=== PATIENT | male | born 1965 | race Caucasian/White ===

== ENCOUNTER 2018-10-23 12:47 | Outpatient (CLI) | payer BC ==
--- NOTE | 2018-10-23 14:38 | CT ---
NONCONTRAST CT ABDOMEN AND PELVIS: Date: 10/23/18 HISTORY: Right flank pain for the past 3 weeks. History of renal stones. COMPARISON: 11/23/13. FINDINGS: The previously noted large calculus in the right renal pelvis is no longer seen and likely related to interval treatment. There is an approximately 3-4 mm nonobstructing calculus in the inferior pole of right kidney. No additional renal or ureteral calculi are seen bilaterally, and there is no hydronep hrosis. A noncalcified pleural based 5.0 mm pulmonary nodule is seen in the region of the lingula. Lung bases are otherwise clear. The right lung base, liver, spleen, pancreas, and bilateral adrenal glands demonstrate a grossly norm al unenhanced CT appearance. There is a punctate calcification seen involving the medial limb of the right adrenal gland, which may be related to prior granulomatous disease. Urinary bladder is partially distended and has a normal appearance. The appendix is visualized and normal in caliber. A very small, fat-containing umbilibal hernia is present. Vascular calcifications seen in the abdominal aorta. Mild degenerative changes noted in the spine. IMPRESSION: 1. Nonobstructing right renal calculus. The previously seen large calculus in the right renal pelvis is no longer visualized, likely related to interval treatment since the prior study. 2. Pleural based pulmonary nodule measuring 5.0 mm in the lingula. This is too small to characterize . 3. No CT evidence of appendicitis. POS: [facility]
== END 2018-10-23 12:48 | disposition home or self-care (01) ==
LOC: BICCT 12:47
PROVIDERS: ATTEND Obstetrics & Gynecology
DX: R10.9 Unspecified abdominal pain (principal); N20.0 Calculus of kidney; R91.1 Solitary pulmonary nodule
CPT/HCPCS: 74176